=== PATIENT | male | born 1995 | race African-American/Black ===

== ENCOUNTER 2024-03-14 16:23 | Emergency (ER) | payer BC ==
[2024-03-14 17:18] LABS: BASOPHILS PERCENT AUTO 0.5 % (0.0-1.0); EOSINOPHILS PERCENT AUTO 0.8 % (0.0-6.0); HEMATOCRIT 42.8 % (42.0-52.0); HEMOGLOBIN 14.8 gm/dl (14.0-18.0); LYMPHOCYTES ABSOLUTE AUTO 2.1 K/mm3 (1.0-4.8); LYMPHOCYTES PERCENT AUTO 51.9 % (24.0-44.0); MEAN CORPUSCULAR HEMOGLOBIN 30.6 pg (28.0-32.0); MEAN CORPUSCULAR HGB CONC 34.6 g/dl (32.0-36.0); MEAN CORPUSCULAR VOLUME 88.4 fl (83.0-99.0); MEAN PLATELET VOLUME 9.3 fl (9.4-12.4); MONOCYTES ABSOLUTE AUTO 0.2 K/mm3 (0.0-0.8); MONOCYTES PERCENT AUTO 5.8 % (0.0-8.0); NEUTROPHILS ABSOLUTE AUTO 1.6 K/mm3 (1.8-7.7); PLATELET COUNT,PLT 250 K/mm3 (150-400); RED BLOOD CELL COUNT 4.84 M/mm3 (4.52-5.90); WHITE BLOOD CELL COUNT,WBC 3.95 K/mm3 (3.9-11.3)
[2024-03-14 17:42] LABS: A/G RATIO 1.4 (1-2); ALBUMIN 4.6 g/dl (3.4-5.0); ANION GAP 10.9 (5-15); BILIRUBIN TOTAL 0.5 mg/dL (0.2-1.0); CREATININE 1.2 mg/dL (0.7-1.3); EST CRCL DRUG DOSING (CG) 99.35 mL/min; POTASSIUM,K 3.9 mEq/L (3.5-5.1)
[2024-03-14] MEDS: Sodium Chloride 0.9% 1,000 ML IV ONE (18:32)
[2024-03-14] MEDS: Metoclopramide 10 MG/2 ML SDV IVPUSH ONE (18:32)
== END 2024-03-14 19:40 | disposition home or self-care (01) ==
LOC: JD.ED 16:23
DX: R07.89 Other chest pain (principal); G43.909 Migraine, unspecified, not intractable, without status migrainosus
CPT/HCPCS: 36415; 71046; 80053; 84484; 85025; 85379; 93005; 96361; 96374; 99285; J2765; J7030; 93010; 99284